=== PATIENT | female | born 1970 | race Caucasian/White ===

== ENCOUNTER 2020-02-05 19:42 | Emergency (ER) | payer OTHER ==
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
[2020-02-05] MEDS ORDERED: HYDROmorphone 0.5 MG/0.5 ML Syringe IVPUSH ONE (20:28)
[2020-02-05] MEDS ORDERED: Ondansetron 4 MG/2 ML SDV IVPUSH ONE (20:28)
[2020-02-05] MEDS ORDERED: Ondansetron 4 MG/2 ML SDV ONE (20:29)
[2020-02-05] MEDS ORDERED: HYDROmorphone 0.5 MG/0.5 ML Syringe ONE (20:29)
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
[2020-02-06] MEDS ORDERED: Ondansetron 4 MG/2 ML SDV IVPUSH ONE (01:09)
[2020-02-06] MEDS ORDERED: HYDROmorphone 0.5 MG/0.5 ML Syringe IVPUSH ONE (01:09)
[2020-02-06] MEDS ORDERED: Bacitracin Oint 1 GM U/D Packet TOP ONE (01:20)
== END 2020-02-06 01:45 ==
LOC: JP.ED 19:42
DX: S22.20XA Unspecified fracture of sternum, initial encounter for closed fracture (principal); Z88.1 Allergy status to other antibiotic agents; V89.2XXA Person injured in unspecified motor-vehicle accident, traffic, initial encounter
CPT/HCPCS: 36415; 71250; 74176; 80048; 84484; 85025; 93005; 96374; 96375; 96376; 99285; J1170; J2405